=== PATIENT | male | born 1955 | race Caucasian/White ===

== ENCOUNTER → 2016-06-18 | Outpatient (CLI) | payer BC ==
--- NOTE | 2016-06-18 11:34 | US ---
EXAMINATION TYPE: US abdomen complete DATE OF EXAM: 06/18/2016 8:29 AM COMPARISON: No previous CLINICAL HISTORY: R10.9 unspecified abdominal pain. Intermittent indigestion and nausea EXAM MEASUREMENTS: Liver Length: 17.0 cm Gallbladder Wall: 0.2 cm CBD: 0.4 cm Spleen: 9.1 cm Right Kidney: 10.1 x 5.4 x 4.5 cm Left Kidney: 11.1 x 5.7 x 5.2 cm TECHNOLOGIST IMPRESSION: Pancreas: visualized portions wnl, limited by overlying midline bowel gas Liver: measures in upper limits of normal at 17.0cm, heterogenous with increased attenuation and echo genicity throughout Gallbladder: 1.2cm echogenic shadowing mobile stone, wall appears wnl Evidence for sonographic Fair's sign: no CBD: visualized portions wnl, limited by overlying bowel gas Spleen: visualized portions wnl, limited by rib shadowing and overlying bowel gas Right Kidney: wnl Left Kidney: 0.8cm hypoechoic area inferior pole, 0.4cm echogenic focus inferior pole, 0.6cm echogen ic focus superior pole Upper IVC: wnl Abd Aorta: visualized portions wnl, limited by overlying midline bowel gas IMPRESSION: Cholelithiasis. Probable fatty infiltration of the liver. There are some limitations to t he exam. Nephrolithiasis suspected on the left at the inferior and superior pole.
--- NOTE | 2016-06-18 11:35 | XR ---
EXAMINATION TYPE: XR abdomen complete w decub DATE OF EXAM: 06/18/2016 8:41 AM COMPARISON: Ultrasound same date HISTORY: Heartburn and indigestion 3 views of the abdomen Calcification is present in the right upper quadrant which may represent gallstone. Lung bases are cl ear. There is no bowel obstruction or pneumoperitoneum. Probable phleboliths present within the pelvi s. IMPRESSION: Cholelithiasis. Nonobstructive bowel gas pattern.
== END | disposition home or self-care (01) ==
LOC: RADUSMAIN 07:43
PROVIDERS: ATTEND Family Medicine
DX: K80.20 Calculus of gallbladder without cholecystitis without obstruction (principal)
CPT/HCPCS: 74020; 76700